=== PATIENT | female | born 1960 | race African-American/Black ===

== ENCOUNTER 2018-10-23 07:24 | Day surgery (SDC) | payer MEDICAID ==
[2018-10-18 13:05] LABS: Basophils # (auto) 0.1 uL; Basophils % (auto) 1.3 % (0.0-2.0); Eosinophils # (auto) 0.2 uL; Eosinophils % (auto) 2.9 % (0.0-7.0); Hematocrit 44.1 % (36.0-46.0); Hemoglobin 14.5 g/dL (12.2-16.2); Lymphocytes # (auto) 2.2 uL; Lymphocytes % (auto) 41.6 % (10.0-50.0); Mean Corpuscular Hemoglobin 29.2 pg (28.0-32.0); Mean Corpuscular Hgb Conc. 32.9 g/dL (32.0-36.0); Mean Corpuscular Volume 88.8 fL (80.0-100.0); Monocytes # (auto) 0.3 uL; Neutrophils # (auto) 2.5 uL; Neutrophils % (auto) 48.2 % (37.0-80.0); Nucleated Red Blood Cells % 0.1 %; Platelet Count (auto) 177 10^3/uL (140-450); Red Blood Cells 4.97 10^6/uL (4.0-5.20); Red Cell Distribution Width 14.1 % (11.8-14.3); White Blood Cell 5.3 10^3/uL (4.4-10.8)
[2018-10-18 13:06] LABS: INR < 0.93 (0.9-1.15); Partial Thromboplastin Time 22.8 sec (23.64-32.05)
[2018-10-18 13:20] LABS: Urine Bacteria MANY /hpf (None Seen); Urine Blood Negative /uL (Negative); Urine Mucus FEW (None Seen); Urine Specific Gravity 1.025 (1.001-1.035); Urine WBC 28 /hpf (0 - 5)
[2018-10-18 15:48] LABS: Albumin 4.2 g/dL (3.4-5.0); BUN/Creatinine Ratio 12.2; Calcium 9.3 mg/dL (8.5-10.1); Potassium 3.5 mmol/L (3.5-5.1)
[2018-10-18 15:51] LABS: Bilirubin, Total 0.7 mg/dL (0.2-1.0)
[~2018-10-23] VITALS: Ht 167.6 cm; Wt 88.0 kg
[~2018-10-23 07:24] MED LIST: ALBUAER3 IN; ASPI-404 PO; GABA-339 PO; HYDR12.56 PO; INSLISPI SC; INSUINJ37 SC; LOSA-39 PO; METO-169 PO; OXY10CRT PO; OXYB5TAB61 PO; SIMV10TA84 PO; TRAZ150T79 PO
[2018-10-23] MEDS ORDERED: ceFAZolin 1GM/50ML 50 ML IV ONE (07:58)
[2018-10-23] MEDS ORDERED: ROPIVACAINE 0.5% (5MG/ML) 20ML AMPULE IJ ONE (09:12)
[2018-10-23] MEDS ORDERED: NEOMYCIN-BACITRACIN-POLYM 15GM TOP OINT TOP ONE (09:12)
[2018-10-23] MEDS ORDERED: LIDOCAINE 1% (LOCAL ANESTH.) PF 5ml SDV ONE (09:21)
[2018-10-23] MEDS ORDERED: MIDAZOLAM HCL 1MG/1ML-2 ML VIAL ONE (09:23)
[2018-10-23] MEDS ORDERED: PROPOFOL 10 MG/ML 20 ML IV ONE (09:26)
[2018-10-23] MEDS ORDERED: diphenhdrAMINE HCL 50 MG/1 ML VL ONE (09:29)
[2018-10-23] MEDS ORDERED: METOCLOPRAMIDE HCL 5MG/ml INJ 2ml VIAL ONE (09:29)
[2018-10-23] MEDS ORDERED: GLYCOPYRROLATE 0.2 MG/ML 1ML VIAL ONE (09:29)
[2018-10-23] MEDS ORDERED: fentaNYL CITRATE 100 MCG/2 ML VL ONE (09:31)
[2018-10-23] MEDS ORDERED: HYDROmorphone HCL 2 MG/ML VL IV PRN (09:45)
[2018-10-23] MEDS ORDERED: NALOXONE HCL 0.4 MG/ML VIAL IV PRN (09:45)
[2018-10-23] MEDS ORDERED: ACCU-CHEK COMFORT CURVE STRIP VI ONE (09:45)
[2018-10-23] MEDS ORDERED: ONDANSETRON HCL 4 MG/2 ML VIAL IV PRN (09:45)
[2018-10-23 10:15] VITALS: BP 126/86
== END 2018-10-23 10:30 | disposition home or self-care (01) ==
LOC: SUR 07:24
PROVIDERS: ATTEND Podiatrist Foot & Ankle Surgery
DX: D36.7 Benign neoplasm of other specified sites (principal); E11.36 Type 2 diabetes mellitus with diabetic cataract; I10 Essential (primary) hypertension; G47.33 Obstructive sleep apnea (adult) (pediatric); M19.90 Unspecified osteoarthritis, unspecified site; J45.909 Unspecified asthma, uncomplicated; G89.29 Other chronic pain; E11.40 Type 2 diabetes mellitus with diabetic neuropathy, unspecified; Z98.890 Other specified postprocedural states; Z79.899 Other long term (current) drug therapy; Z88.8 Allergy status to other drugs, medicaments and biological substances
CPT/HCPCS: 13131; 28041; 36415; 80053; 81001; 82962; 85025; 85610; 85730; 88304; 88342; J0690; J1200; J2250; J2704; J2765; J2795; J3010; L3260